=== PATIENT | male | born 1970 | race Caucasian/White ===

== ENCOUNTER 2019-08-24 21:10 | Emergency (ER) | payer OTHER ==
[~2019-08-24] VITALS: Ht 172.7 cm; Wt 90.7 kg
[~2019-08-24 21:10] MED LIST: CENTANY15 GM TP; CIPRO500 MG PO; DITROPAN XL10 MG PO; KEFLEX250 MG PO; KEFLEX500 MG PO; LEVAQUIN750 MG PO; METFORMIN HCL500 M3 PO; NABUMETONE750 MG PO; PERCOCET 5-3251 EACH PO; TAMS0.4C PO; URIN D.S. TABL1 EACH PO
== END 2019-08-24 22:18 | disposition home or self-care (01) ==
LOC: ER 21:10
DX: R00.0 Tachycardia, unspecified (principal); F41.9 Anxiety disorder, unspecified; T39.1X5A Adverse effect of 4-Aminophenol derivatives, initial encounter

== ENCOUNTER 2022-01-13 00:56 | Emergency (ER) | payer OTHER ==
[~2022-01-13] VITALS: Ht 170.2 cm; Wt 90.7 kg
[2022-01-13] MEDS ORDERED: LANTUS SOL100 UNIT/1 TD (01:13)
[2022-01-13] MEDS ORDERED: CENTANY30 GM TOP (03:21)
[2022-01-13] MEDS ORDERED: CEPHALEXIN500 MG PO (03:21)
== END 2022-01-13 03:30 ==
LOC: ER 00:56
DX: L72.3 Sebaceous cyst (principal); E11.9 Type 2 diabetes mellitus without complications; Z79.4 Long term (current) use of insulin